=== PATIENT | male | born 1990 | race Caucasian/White ===

== ENCOUNTER 2020-05-05 17:47 | Emergency (ER) | payer OTHER, SELFPAY ==
[2020-05-05 18:07] VITALS: BP 150/99; PULSE 99; RESP 16; TEMP 37.8; O2SAT 100
--- NOTE | 2020-05-05 18:41 | ED.URI ---
HPI - URI/Sore Throat General Chief Complaint: Upper Respiratory Infection Stated Complaint: fever/cough/weakness Source: patient Mode of arrival: ambulatory Limitations: no limitations History of Present Illness HPI Narrative: 30-year-old male presents to [facility] with complaints of dry cough, body aches, chills, subjective fevers and fatigue since this morning. Patient is a non-smoker. Patient denies sick contacts. Patient has not tried taking any [id number] medications for his symptoms. Patient denies runny nose, nasal congestion, chest pains, headache, dizziness, shortness of breath, wheezing, nausea, vomiting or diarrhea. MD elicited complaint: fever and cough Onset (ago): hour(s) (12) Able to tolerate fluids by mouth: Yes Associated symptoms: chills and cough Treatments prior to arrival: none Related Data Home Medications Medication Instructions Recorded Confirmed metformin 500 mg PO BID 05/05/20 05/05/20 Allergies Allergy/AdvReac Type Severity Reaction Status Date / Time No Known Allergies Allergy Verified 05/05/20 18:10 Review of Systems Constitutional: Constitutional: Reports chills, Reports fatigue, Reports fever(s) and Denies weakness ENT: Denies dysphagia, Denies epistaxis and Denies sore throat Cardiovascular: Cardiovascular: Denies chest pain, Denies rapid heart rate, Denies radiating jaw, neck or arm pain and Denies slow heart rate Respiratory: Respiratory: Denies chest congestion, Reports cough, Denies dyspnea and Denies wheezing Gastrointestinal: Gastrointestinal: Denies abdominal pain, Denies diarrhea, Denies nausea and Denies vomiting Musculoskeletal: Musculoskeletal: Denies arthralgias Integumentary/Breasts: Skin/Breast: Denies rash Neurologic: Denies dizziness Endocrine: Endocrine: Denies fatigue [facility] Past Medical History Medical History (Updated 05/05/20 @ 18:46 by Lily Valenzuela APRN) Diabetes Hypertension Surgical History Surgical History (Updated 05/05/20 @ 18:43 by Lily Valenzuela APRN) [place] teeth extracted Family History Family History (Updated 05/05/20 @ 18:43 by Lily Valenzuela APRN) Father Diabetes mellitus Mother Diabetes mellitus Social History Social History (Updated 05/05/20 @ 18:43 by Lily Valenzuela APRN) Smoking status: Never smoker Comments at time of signature, I agree with nursing past medical, surgical, social and family history. There is no relevant family history pertinent to the presenting complaint. Exam Const: General: no acute distress Nutritional Appearance: well nourished and obese Orientation/consciousness: patient oriented x3 HENMT: Head: normal to inspection Mouth: Yes lip normal and Yes moist mucous membranes Throat: posterior oropharynx normal and uvula midline Neck: Neck: normal visual inspection Resp: Effort & Inspection: normal respiratory effort and not labored Auscultation: clear to auscultation bilaterally and no wheezes Cardio: Rate: regular rate, not bradycardic and not tachycardic Rhythm: regular rhythm Heart sounds: no murmurs Skin: General skin exam: normal color, no jaundice and no pallor Rashes: no rashes Wounds: no wounds Neuro: General: patient oriented x3 and moves all extremities Speech: normal speech Psych: Appearance: grossly normal Mental Status: mental status grossly normal Affect: normal affect Attitude: cooperative Thought content: Yes Normal thought content present Course Vital Signs Vital signs: Vital Signs Temperature 37.8 C H 05/05/20 18:07 Pulse Rate 99 05/05/20 18:07 Respiratory Rate 16 05/05/20 18:07 Blood Pressure 150/99 H 05/05/20 18:07 Pulse Oximetry 100 05/05/20 18:07 Temperature 37.8 C H 05/05/20 18:07 Pulse Rate 99 05/05/20 18:07 Respiratory Rate 16 05/05/20 18:07 Blood Pressure 150/99 H 05/05/20 18:07 Pulse Oximetry 100 05/05/20 18:07 MDM - URI/Sore Throat MDM Narrative Medical decision making narrative: Devin
[2020-05-05 18:50] VITALS: BP 152/95
== END 2020-05-05 18:50 | disposition home or self-care (01) ==
PROVIDERS: Emergency Provider Nurse Practitioner Family
DX: U07.1 COVID-19 (principal); E11.9 Type 2 diabetes mellitus without complications; I10 Essential (primary) hypertension
CPT/HCPCS: 87426; 87804; 99203; C9803; G0463

== ENCOUNTER 2020-11-10 13:15 | Emergency (ER) | payer OTHER, SELFPAY ==
[2020-11-10 13:33] VITALS: BP 150/99; PULSE 69; RESP 16; TEMP 36.2; O2SAT 99
--- NOTE | 2020-11-10 13:37 | ED.URI ---
HPI - URI/Sore Throat General Chief Complaint: Upper Respiratory Infection Stated Complaint: cough Time Seen by Provider: 11/10/20 13:35 Source: patient and RN notes reviewed Mode of arrival: ambulatory Limitations: no limitations History of Present Illness HPI Narrative: 30-year-old male presents to the [facility] with complaints of a sore throat since Sunday. Patient states that he woke up and thought it was just that he was snoring. States that he woke up again yesterday with a sore throat has taken DayQuil and NyQuil with no relief. Comes in today because his throat continues to be sore. Denies fevers or chest pain. No shortness of breath. No abdominal pain. Patient states that he supposed to be on Metformin for diabetes. Denies any other past medical or surgical history. Has not had Covid nor the vaccine Related Data Home Medications Medication Instructions Recorded Confirmed metformin 500 mg PO BID 05/05/20 11/10/20 Allergies Allergy/AdvReac Type Severity Reaction Status Date / Time No Known Allergies Allergy Verified 05/05/20 18:10 Review of Systems Review of Systems: All systems reviewed & are unremarkable except as noted in HPI and below Constitutional: Constitutional: Reports no additional constitutional complaints, Denies chills and Denies fever(s) Eyes: Eyes: Reports no additional eye complaints ENT: Reports as per HPI and Reports sore throat Cardiovascular: Cardiovascular: Reports no additional cardiovascular complaints and Denies chest pain Respiratory: Respiratory: Reports no additional respiratory complaints, Denies cough and Denies dyspnea Gastrointestinal: Gastrointestinal: Reports no additional gastrointestinal complaints, Denies abdominal pain, Denies nausea and Denies vomiting Musculoskeletal: Musculoskeletal: Reports no additional musculoskeletal complaints Integumentary/Breasts: Skin/Breast: Reports system reviewed and no additional complaints, except as docu and Denies rash Neurologic: Reports system reviewed and no additional complaints, except as documented Psychiatric: Psychiatric: Reports no additional psychiatric complaints Allergic/Immunologic: Allergic/Immunologic: Reports no additional allergic/immunologic complaints PMF Past Medical History Medical History Diabetes Hypertension Surgical History Surgical History [place] teeth extracted Family History Family History Father Diabetes mellitus Mother Diabetes mellitus Social History Social History (Updated 11/10/20 @ 14:05 by Jaja Escamilla) Smoking status: Never smoker Alcohol use details: Occasional Substance use: never Living arrangements: with friend(s) Additional living arrangements comments: Lives with girlfriend Gender identity (if verbalized by the patient): Male Comments At the time of my signature, I reviewed and agree with the nursing past medical, surgical, social, and family history. There is no relevant family history pertinent to the patient complaint. Exam Const: General: healthy appearing, no acute distress and alert Nutritional Appearance: well nourished Orientation/consciousness: patient oriented x3 Limitations: no limitations HENMT: Head: normal to inspection Ears: external ears normal, TM's normal bilaterally and EAC's normal Eyes: Conjunctivae: conjunctivae normal Pupils: Equal, round and reactive pupils present Neck: Neck: normal visual inspection, no lymphadenopathy and no meningeal signs Chest: Chest palpation & inspection: normal inspection of the chest Resp: Effort & Inspection: normal respiratory effort and no use of accessory muscles Auscultation: clear to auscultation bilaterally, no crackles, no rales, no rhonchi and no wheezes Cardio: Rate: regular rate Rhythm: regular rhythm Back/Spine/Pelvis: Chuy
[2020-11-11 19:18] LABS: SARS-CoV-2 RNA PCR Negative
== END 2020-11-10 14:03 | disposition home or self-care (01) ==
PROVIDERS: Emergency Provider Nurse Practitioner
DX: B34.9 Viral infection, unspecified (principal); R09.82 Postnasal drip; J06.9 Acute upper respiratory infection, unspecified; Z20.822 Contact with and (suspected) exposure to COVID-19; E11.9 Type 2 diabetes mellitus without complications; I10 Essential (primary) hypertension
CPT/HCPCS: 87081; 87880; 99213; C9803; G0463; U0003; U0005